=== PATIENT | female | born 1950 ===

== ENCOUNTER 2022-04-30 14:41 | Outpatient (CLI) | payer MEDICARE, SELFPAY ==
[2022-04-30 18:10] LABS: Cholesterol* 178 mg/dL (90-199); HDL Cholesterol* 65 mg/dL (>=50); LDL Cholesterol Calculated 89 mg/dL (<100); Triglycerides* 121 mg/dL (40-149)
[2022-04-30 23:23] LABS: Free T4 Free Thyroxine* 1.04 ng/dL (0.70-1.85)
== END 2022-04-30 14:42 | disposition home or self-care (01) ==
PROVIDERS: PCP Family Medicine; Visit Provider Family Medicine
DX: E78.5 Hyperlipidemia, unspecified (principal); I10 Essential (primary) hypertension; Z13.29 Encounter for screening for other suspected endocrine disorder
CPT/HCPCS: 80061; 84439; 84443

== ENCOUNTER 2023-08-13 11:37 | Outpatient (CLI) | payer MEDICARE, OTHER, SELFPAY | END 2023-08-13 11:38 | disposition home or self-care (01) | PROVIDERS: PCP Family Medicine; Visit Provider Family Medicine | DX: E78.5 Hyperlipidemia, unspecified (principal); I10 Essential (primary) hypertension; E04.9 Nontoxic goiter, unspecified; Z13.29 Encounter for screening for other suspected endocrine disorder | CPT/HCPCS: 80048; 80061; 84439; 84443 ==

== ENCOUNTER 2024-10-27 15:03 | Outpatient (CLI) | payer MEDICARE, SELFPAY | END 2024-10-27 15:04 | disposition home or self-care (01) | PROVIDERS: PCP Family Medicine; Visit Provider Family Medicine | DX: E78.5 Hyperlipidemia, unspecified (principal); E04.9 Nontoxic goiter, unspecified | CPT/HCPCS: 80048; 80061; 84439; 84443 ==

== ENCOUNTER 2025-06-04 14:49 | Outpatient (CLI) | payer MEDICARE, SELFPAY | END 2025-06-04 14:50 | disposition home or self-care (01) | LOC: LKVREF 14:50 | PROVIDERS: PCP Family Medicine; Visit Provider Family Medicine | DX: E04.9 Nontoxic goiter, unspecified (principal) | CPT/HCPCS: 84439; 84443 ==